=== PATIENT | female | born 1980 | race Caucasian/White ===

== ENCOUNTER 2016-11-13 19:55 | Emergency (ER) | payer OTHER ==
[~2016-11-13] VITALS: Ht 165.1 cm; Wt 59.0 kg
[~2016-11-13 19:55] MED LIST: HYDR-79 PO; HYDR-971 PO; NAPR500T3 PO; PRED20TA PO
[2016-11-13 21:15] LABS: BASO % 0 % (0-3); EOS # 0.1 x10^3/uL (0.0-0.7); EOS % 1 % (0-3); HEMATOCRIT 38.5 % (36.0-47.0); HEMOGLOBIN 12.7 g/dL (12.0-15.5); LYMPH # 2.8 x10^3/uL (1.0-4.8); LYMPH % 35 % (24-48); MEAN CORPUSCULAR HEMOGLOBIN 28 pg (25-35); MEAN CORPUSCULAR HGB CONC 33 g/dL (31-37); MEAN CORPUSCULAR VOLUME 84 fL (79-100); MONO # 0.6 x10^3/uL (0.0-1.1); MONO % 7 % (0-9); NEUT # 4.6 x10^3uL (1.8-7.7); NEUT % 57 % (31-73); PLATELET COUNT 248 x10^3/uL (140-400); RED BLOOD COUNT 4.62 x10^6/uL (3.50-5.40); RED CELL DISTRIBUTION WIDTH 15.2 % (11.5-14.5); WHITE BLOOD COUNT 8.2 x10^3/uL (4.0-11.0)
[2016-11-13 21:27] LABS: ALBUMIN 3.8 g/dL (3.4-5.0); ALBUMIN/GLOBULIN RATIO 1.1 (1.0-1.7); CALCIUM 8.8 mg/dL (8.5-10.1); CREATININE 0.7 mg/dL (0.6-1.0); GFR 95.2; POTASSIUM 3.6 mmol/L (3.5-5.1); TOTAL BILIRUBIN 0.2 mg/dL (0.2-1.0); TOTAL PROTEIN 7.3 g/dL (6.4-8.2)
[2016-11-13 21:50] LABS: CLARITY,URINE TURBID; COLOR,URINE RED
[2016-11-13 21:52] LABS: BACTERIA,URINE 0 /HPF (0-FEW); RBC,URINE >40 /HPF (0-2); SQUAMOUS EPITHELIAL CELL,UR FEW /LPF; WBC,URINE OCC /HPF (0-4)
[2016-11-13 22:00] VITALS: BP 126/63
--- NOTE | 2016-11-13 22:11 | PHYS DOC ---
General Chief Complaint: VAGINAL BLEEDING Stated Complaint: ABNORMAL MENSTRUAL CYCLE Time Seen by MD: 20:32 Source: patient Exam Limitations: no limitations Problems: History of Present Illness Initial Comments Pt is 36/F to ED c/o vaginal bleeding and cramping. Pt states for past two days she's essentially had an extra period, states she finished last menses 2 wks ago. States past two days 4 pads/day, also with low abdominal cramping moderate intensity c/w menstrual cramps. No other vaginal discharge/bowel/bladder symptoms, no weight loss/night sweats. Pt is sexually active no protection, has h/o miscarriage x 2 in past and wants to ensure no miscarriage currently. No prearrival treatment, no cp/BROWNING/dizzy/iraheta with exertion. Timing/Duration: yesterday Severity/Quality: moderate, cramping Location: suprapubic Radiation: none Activities at Onset: none Prior Genitourinary Problems: similar symptoms (with menses) Sexual [place] History: single partner (unprotected) Modifying Factors: improves with other Associated Symptoms: abdominal pain, other Allergies: Coded Allergies: No Known Drug Allergies (Unverified , 04/05/14) Past Medical History Medical History: other (UTI) Surgical History: other Family History Significant Family History: no pertinent family hx Social History Smoker: cigarettes Alcohol: occasionally Drugs: none Review of Systems Constitutional: denies chills, denies fever, denies malaise Respiratory: denies cough, denies shortness of breath Cardiovascular: denies chest pain, denies palpitations, denies syncope Gastrointestinal: see HPI, denies diarrhea, denies nausea, denies vomiting Genitourinary: see HPI Musculoskeletal: denies back pain, denies joint swelling, denies neck pain Psychiatric/Neurological: denies headache, denies numbness, denies paresthesia Physical Exam General Appearance: WD/WN, no apparent distress HEENT: normal ENT inspection Neck: non-tender, supple Cardiovascular/Respiratory: normal peripheral pulses, no respiratory distress Gastrointestinal: normal bowel sounds, non tender, soft Rectal: deferred Pelvic: other (deferred) Back: no CVA tenderness, no vertebral tenderness Extremities: non-tender, normal inspection 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 Pt relieved she's not having miscarriage. Departure Time of Disposition: 22:08 Disposition: 01 HOME, SELF-CARE Diagnosis: menorrhagia Condition: GOOD Patient Instructions: Menorrhagia, [id number] Additional Instructions: Rest, activity as tolerated. Aggressive hydration with gatorade, water. OTC ibuprofen 800mg every 8 hours for discomfort and to decrease blood flow to uterus. Follow up with your SENIOR AGRICULTURAL ASSISTANT, call first thing tomorrow morning to schedule. Return to ED with new or changing symptoms. SUSI WALTERS DO November 13, 2016 22:11
== END 2016-11-13 22:20 | disposition home or self-care (01) ==
LOC: ER 19:59
DX: N92.0 Excessive and frequent menstruation with regular cycle (principal); F17.210 Nicotine dependence, cigarettes, uncomplicated; Z87.440 Personal history of urinary (tract) infections
CPT/HCPCS: 36415; 80053; 81001; 81025; 85027; 99284

== ENCOUNTER → 2018-06-19 | Outpatient (CLI) | payer OTHER ==
[~2018-06-19] MED LIST changes: +HYDR-1179 PO; +HYDR-3165 PO; -HYDR-79 PO; -HYDR-971 PO; +NAPR-514 PO; -NAPR500T3 PO
--- NOTE | 2018-06-20 11:41 | RAD ---
DATE: 06/19/2018 EXAM: MAMMO JAKOB SCREENING BILATERAL HISTORY: Routine screening COMPARISON: None available This study was interpreted with the benefit of Computerized Aided Detection (CAD). Breast Density: HETERO The breast parenchyma is heterogenously dense, which could reduce sensitivity of mammography. Breast parenchyma level C. FINDINGS: 2-D and 3-D tomosynthesis imaging was performed in CC and MLO projections. The fibroglandular tissues are heterogeneous in a multinodular pattern. Several small smooth nodules are seen in both breasts. This is typically due to benign disease such as breast cysts. No spiculated mass or architectural distortion is seen. Benign type calcifications are present. No suspicious microcalcifications are evident. IMPRESSION: There is no mammographic evidence of malignancy in either breast. BI-RADS CATEGORY: 2 BENIGN FINDING(S) RECOMMENDED FOLLOW-UP: 12M 12 MONTH FOLLOW-UP PQRS compliance statement: Patient information was entered into a reminder system with a target due date for the next mammogram. Mammography is a sensitive method for finding small breast cancers, but it does not detect them all and is not a substitute for careful clinical examination. A negative mammogram does not negate a clinically suspicious finding and should not result in delay in biopsying a clinically suspicious abnormality. "Our facility is accredited by the [employer] Mammography Program."
== END | disposition home or self-care (01) ==
LOC: MAMMO 13:10
PROVIDERS: ATTEND Physician Assistant
DX: Z12.31 Encounter for screening mammogram for malignant neoplasm of breast (principal)
CPT/HCPCS: 77063; 77067

== ENCOUNTER → 2018-12-12 | Outpatient (CLI) | payer OTHER ==
--- NOTE | 2018-12-13 09:04 | RAD ---
Chest, PA and Lateral: Technique: PA and lateral views of the chest were obtained. History: Chest pain. Comparison: None. Findings: The heart and pulmonary vasculature appear within normal limits. The lungs are clear. The pleural margins are clear. Impression: No acute chest process is seen. Electronically signed by: Fadi Malhotra MD (12/13/2018 9:01 AM) [facility]
== END | disposition home or self-care (01) ==
LOC: DXRAD 16:59
PROVIDERS: ATTEND Registered Nurse
DX: R00.2 Palpitations (principal); R07.9 Chest pain, unspecified; R10.9 Unspecified abdominal pain
CPT/HCPCS: 71046

== ENCOUNTER → 2019-01-20 | Outpatient (CLI) | payer OTHER ==
--- NOTE | 2019-01-20 15:41 | CARD ---
MR#: [id number] Date of Study: 01/20/2019 Ordering Physician: TRISH ENNIS, Referring Physician: TRISH ENNIS Tech: Holley Milligan [facility] APPROVED REPORT EXAM: Two-dimensional and M-mode echocardiogram with Doppler and color Doppler. Other Information Quality : AverageHR: 82bpm Rhythm : NSRTechnically limited study due to smoking. INDICATION Chest Pain 2D DIMENSIONS RVDd3.4 (2.9-3.5cm)Left Atrium(2D)2.7 (1.6-4.0cm) IVSd1.0 (0.7-1.1cm)Aortic Root(2D)3.2 (2.0-3.7cm) LVDd4.2 (3.9-5.9cm)LVOT Diameter2.3 (1.8-2.4cm) PWd1.0 (0.7-1.1cm)LVDs3.0 (2.5-4.0cm) FS (%) 29.1 %SV44.9 ml LVEF(%)56.2 (>50%) M-Mode DIMENSIONS Left Atrium(MM)3.28 (2.5-4.0cm)Aortic Root3.13 (2.2-3.7cm) Aortic Valve AoV Peak Pravin.87.9cm/sAoV VTI17.7cm AO Peak GR.3.1mmHgLVOT Peak Pravin.78.8cm/s LVOT VTI 13.11cmAO Mean GR.2mmHg KRISTEN (VMAX)3.31dh0ZYW (VTI)3.04cm2 Mitral Valve MV E Zvuilpei94.3cm/sMV DECEL [id number] MV A Itzohpcb11.2cm/sE/A Ratio1.2 Pulmonary Valve PV Peak Tjyveuor06.5cm/sPV Peak Grad.2mmHg LEFT VENTRICLE The left ventricle is normal size. There is normal left ventricular wall thickness. The left ventricu lar systolic function is normal. The Ejection Fraction is 55-60%. There is normal LV segmental wall m otion. The left ventricular diastolic function and filling is normal for age. RIGHT VENTRICLE The right ventricle is normal size. There is normal right ventricular wall thickness. The right ventr icular systolic function is normal. ATRIA The left atrium size is normal. The right atrium size is normal. The interatrial septum is intact wit h no evidence for an atrial septal defect or patent foramen ovale as noted on 2-D or Doppler imaging. AORTIC VALVE The aortic valve is normal in structure and function. The aortic valve is trileaflet. Doppler and Col or Flow revealed no significant aortic regurgitation. There is no significant aortic valvular stenosi s. MITRAL VALVE The mitral valve is normal in structure and function. There is no evidence of mitral valve prolapse. There is no mitral valve stenosis. Doppler and Color Flow revealed no mitral valve regurgitation note d. TRICUSPID VALVE The tricuspid valve is normal in structure and function. Doppler and Color Flow revealed no tricuspid valve regurgitation noted. There is no tricuspid valve prolapse or vegetation. There is no tricuspid valve stenosis. PULMONIC VALVE The pulmonic valve is not well visualized. GREAT VESSELS The aortic root is normal in size. The ascending aorta is normal in size. The IVC is normal in size a nd collapses >50% with inspiration. PERICARDIAL EFFUSION There is no evidence of significant pericardial effusion. Critical Notification Critical Value: No <Conclusion> The left ventricular systolic function is normal. The Ejection Fraction is 55-60%. There is normal LV segmental wall motion. No significant valvular abnormalities. There is no evidence of significant pericardial effusion. Signed by : Austen Carr, Electronically Approved : 01/20/2019 15:40:44
== END | disposition home or self-care (01) ==
LOC: ECHO 15:00
PROVIDERS: ATTEND Registered Nurse
DX: R07.9 Chest pain, unspecified (principal); R06.02 Shortness of breath; R00.2 Palpitations
CPT/HCPCS: 93306

== ENCOUNTER 2020-01-30 05:46 | Emergency (ER) | payer MEDICAID ==
[~2020-01-30] VITALS: Ht 165.1 cm; Wt 64.6 kg
[2020-01-30 06:02] VITALS: BP 129/78
[2020-01-30] MEDS ORDERED: TRAM50TA PO (06:20)
--- NOTE | 2020-01-30 06:25 | PHYS DOC ---
Past History Past Medical History: Hypothyroid, UTI Past Surgical History: Cholecystectomy, Other Additional Past Surgical Histo: D&C, WISDOM TEETH Smoking: Cigarettes Alcohol Use: Occasionally Drug Use: None General Adult EDM: Chief Complaint: Neck Pain HPI: HPI: Patient is a 39-year-old female presenting with neck pain onset several hours ago gradual onset she says she has degenerative disc disease in her neck she has intermittent neck pain sometimes she feels shooting pains in her neck on a longstanding basis but today was worse, stiffness across both sides of the neck. Then she began to have some "heavy head". She said that when she blinks her eye on the right she sometimes feels like there is a film on top of it no double vision no actual loss of vision visual acuity was completely normal in the emergency room. 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 She is worried about a pinched nerve in her neck. No fever no cough no other daily medications no anticoagulation. Review of Systems: Review of Systems: Constitutional: Denies fever or chills Musculoskeletal: Integument: Denies rash Neurologic: Denies , focal weakness or sensory changes Endocrine: Denies polyuria or polydipsia Lymphatic: Denies swollen glands Psychiatric: Denies depression or anxiety Heart Score: Risk Factors: Risk Factors: DM, Current or recent (<one month) smoker, HTN, HLP, family history of CAD, obesity. Risk Scores: Score 0 - 3: 2.5% MACE over next 6 weeks - Discharge Home Score 4 - 6: 20.3% MACE over next 6 weeks - Admit for Clinical Observation Score 7 - 10: 72.7% MACE over next 6 weeks - Early Invasive Strategies Allergies: Allergies: Allergies Coded Allergies Type Severity Reaction Last Updated Verified No Known Drug Allergies 04/05/14 No Physical Exam: PE: Constitutional: Well developed, well nourished, no acute distress, non-toxic appearance. [] HENT: Normocephalic, atraumatic, bilateral external ears normal, oropharynx moist, no oral exudates, nose normal. [] Eyes: PERRLA, EOMI, conjunctiva normal, no discharge. [] Cranial nerves intact Neck: Tenderness to palpation noted in the bilateral trapezius areas there is some tight muscles noted on palpation. Pulmonary: Normal respiratory effort no increased work of breathing no obvious chest wall trauma Abdomen: Bowel sounds normal, soft, no tenderness, no masses, no pulsatile masses. [] Skin: Warm, dry, no erythema, no rash. [] Back: No tenderness, no CVA tenderness. [] Extremities: No tenderness, no cyanosis, no clubbing, ROM intact, no edema. [] Neurologic: Alert and oriented X 3, normal motor function, normal sensory function, no focal deficits noted. [] Cranial nerves and speech and totally intact gait normal Psychologic: Affect normal, judgement normal, mood normal. [] Current Patient Data: Vital Signs: Vital Signs Date Time Temp Pulse Resp B/P (MAP) Pulse Ox O2 Delivery O2 Flow Rate FiO2 01/30/20 06:02 97.5 91 18 129/78 (95) 100 Room Air EKG: EKG: [] Radiology/Procedures: Radiology/Procedures: [] Course & Med Decision Making: Course & Med Decision Making Pertinent Labs and Imaging studies reviewed. (See chart for details) [] Well-appearing 31-year-old female presenting with neck pain. Sounds like there is a component of muscle spasm. Patient has a history of migraines although she says her headache is only very mild but mostly her neck. It was gradual onset she has known degenerative disc disease. She has no objective neurologic findings she does not have sudden onset unilateral neck pain she has more bilateral mild muscle pain reproducible on examination I do not think that she is having an acute vascular emergency. Visual acuity was normal in the emergency room prescription for tramadol Dragon Disclaimer: Dragon Disclaimer: This electronic medical record was generated, in whole or in part, using a voice recognition dictation system. Departure Departure: Impression: Primary Impression: Neck pain Disposition: 01 HOME/RESIDENCE PRIOR TO ADM Condition: STABLE Patient Instructions: Strain-SportsMed Scripts Tramadol Hcl (TRAMADOL HCL) 50 Mg Tablet 50 MG PO PRN Q6HRS PRN for PAIN, #10 TAB Prov: GEORGES RUIZ MD 01/30/20 Justification of Admission: Justification of Admission: Justification of Admission Dx: N/A GEORGES RUIZ MD Jan 30, 2020 06:25
== END 2020-01-30 06:23 | disposition home or self-care (01) ==
LOC: ER 05:46
DX: M54.2 Cervicalgia (principal); G43.909 Migraine, unspecified, not intractable, without status migrainosus; E03.9 Hypothyroidism, unspecified; F17.210 Nicotine dependence, cigarettes, uncomplicated; Z87.440 Personal history of urinary (tract) infections
CPT/HCPCS: 99283

== ENCOUNTER → 2020-02-08 | Outpatient (CLI) | payer MEDICAID, OTHER ==
[2020-01-30 06:02] VITALS: BP 129/78
[~2020-02-08] MED LIST changes: +TRAM50TA PO
--- NOTE | 2020-02-08 12:54 | RAD ---
EXAM: Abdomen sonogram. HISTORY: Pain. TECHNIQUE: Sonographic imaging of the abdomen was performed. COMPARISON: None. FINDINGS: The liver is normal in size. No focal hepatic lesion is seen. The gallbladder is surgically absent. The common bile duct is normal in caliber. The kidneys and spleen are unremarkable. The pancreas is obscured due to bowel gas. The aorta and inferior vena cava are unremarkable. IMPRESSION: 1. Cholecystectomy. 2. Obscured pancreas due to bowel gas. Electronically signed by: Sharmila An MD (02/08/2020 12:51 PM) [email or web address]
--- NOTE | 2020-02-08 13:49 | RAD ---
EXAM: Nuclear gastric emptying scan. HISTORY: Pain. COMPARISON: None. TECHNIQUE: Serial static images were obtained over the stomach following oral administration of 2.0 mCi of 99m-Tc sulfur colloid. FINDINGS: The stomach empties into the small bowel without evidence of reflux in the area of the esophagus. The estimated time for half emptying of gastric contents, i.e. 'gastric emptying time' is 74 minutes (normal is 66 +/- 22 minutes). There is 58 percent retained tracer activity within the stomach at one hour, 24 percent retained tracer activity within stomach at 2 hours, 3 percent retained tracer activity within stomach at 3 hours, and 0 percent retained tracer activity within stomach at 4 hours. IMPRESSION: Normal gastric emptying scan. Electronically signed by: Sharmila An MD (02/08/2020 1:46 PM) [email or web address]
== END ==
LOC: US 08:15
PROVIDERS: ATTEND Internal Medicine Gastroenterology
DX: R10.9 Unspecified abdominal pain (principal); Z90.49 Acquired absence of other specified parts of digestive tract
CPT/HCPCS: 76700; 78264; A9541

== ENCOUNTER → 2020-03-16 | Outpatient (CLI) | payer MEDICAID ==
[2020-03-16 15:48] LABS: ALBUMIN 3.6 g/dL (3.4-5.0); CALCIUM 8.5 mg/dL (8.5-10.1); CREATININE 0.7 mg/dL (0.6-1.0); GFR 93.6; POTASSIUM 3.7 mmol/L (3.5-5.1); TOTAL BILIRUBIN 0.5 mg/dL (0.2-1.0); TOTAL PROTEIN 7.2 g/dL (6.4-8.2)
== END | disposition home or self-care (01) ==
LOC: LAB 14:06
PROVIDERS: ATTEND Internal Medicine Gastroenterology
DX: R10.9 Unspecified abdominal pain (principal)
CPT/HCPCS: 36415; 80053; 82150; 83690

== ENCOUNTER → 2020-05-02 | Outpatient (CLI) | payer MEDICAID ==
--- NOTE | 2020-05-02 15:23 | RAD ---
EXAMINATION: BREAST RIGHT, DIGITAL DIAGNOSTIC BILATERAL, 05/02/2020 2:30 PM CLINICAL INDICATION 40-year-old woman presenting for palpable abnormality in the upper outer right breast. COMPARISON: Screening mammogram 06/19/2018 FINDINGS: Digital bilateral CC and MLO views of both breasts were obtained. Spot compression CC and MLO view of the right breast was obtained: The breasts are heterogeneously dense, which may obscure small masses. There is a palpable marker at 10:00 in the right breast. There is no suspicious mass, suspicious calcification, or architectural distortion in either breast. Spot compression CC and MLO views of the upper outer right breast demonstrates normal fibroglandular tissue. Targeted ultrasound in the area of concern at 10-12 o'clock in the right breast was performed: This demonstrates multiple anechoic ovoid, circumscribed simple cysts in the area of concern. For example, there are 2 cysts at 12:00 4 cm from the nipple, one measuring 6 x 7 x 5 mm and the other measuring 6 x 5 x 4 mm. There is one at 10:00 4 cm from the nipple measuring 5 x 6 x 4 mm. These likely correspond with the palpable abnormality. There are several lymph nodes in the right axilla with normal morphology. IMPRESSION: 1. No mammographic evidence of malignancy in the either breast. 2. BI-RADS 1: Negative. 3. Routine annual screening mammogram is recommended in 1 year. The patient will receive a reminder letter by mail when she is due for her next exam. Electronically signed by: Landy Torres MD (05/02/2020 3:20 PM) [email or web address]
== END ==
LOC: MAMMO 13:13
PROVIDERS: ATTEND Family Medicine
DX: N60.01 Solitary cyst of right breast (principal); N60.02 Solitary cyst of left breast
CPT/HCPCS: 76641; 77066

== ENCOUNTER → 2020-09-20 | Outpatient (CLI) | payer MEDICAID ==
--- NOTE | 2020-09-20 14:38 | RAD ---
EXAM: Renal sonogram. HISTORY: Lower back pain. Dysuria. TECHNIQUE: Sonographic imaging of the kidneys and bladder was performed. COMPARISON: None. FINDINGS: The kidneys are normal in size. There is a 1.7 cm simple appearing cyst within the mid zone of the left kidney. There is no hydronephrosis. The bladder is unremarkable. The prevoid bladder vol ume is 54 cc. The ureteral jets are both seen. There is aortic atherosclerosis. The inferior vena cav a is patent. IMPRESSION: 1. 1.7 cm simple appearing left renal cyst. Follow up is not routinely performed for simple cysts. 2. No acute sonographic finding. Electronically signed by: Sharmila An MD (09/20/2020 2:35 PM) [id number]
== END ==
LOC: US 13:47
PROVIDERS: ATTEND Urology
DX: N28.1 Cyst of kidney, acquired (principal); I70.0 Atherosclerosis of aorta; M54.5 Low back pain; N30.21 Other chronic cystitis with hematuria
CPT/HCPCS: 76770

== ENCOUNTER → 2020-11-03 | Outpatient (CLI) | payer MEDICAID ==
--- NOTE | 2020-11-03 13:07 | RAD ---
Right hand 3 views. HISTORY: "Right thumb Saturday" 3 views were taken of the right hand. There is not evidence of an acute fracture or osseous abnormali ty. IMPRESSION: 1. Negative right hand. Electronically signed by: César Kim MD (11/03/2020 1:05 PM) [facility]
== END ==
LOC: RAD 12:41
PROVIDERS: ATTEND Nurse Practitioner Family
DX: M79.641 Pain in right hand (principal)
CPT/HCPCS: 73130